=== PATIENT | female | born 1990 | race Caucasian/White ===

== ENCOUNTER 2017-01-17 07:20 | Inpatient (IN) | payer OTHER ==
[~2017-01-17] VITALS: Ht 162.6 cm; Wt 79.1 kg
[~2017-01-17 07:20] MED LIST: ALBUAER2 INH; PRENTAB69 PO
[2017-01-17] MEDS ORDERED: LACTATED RINGER'S 1000ML 1,000 ML IV PRN (09:01)
[2017-01-17 09:28] VITALS: Ht 162.6 cm; Wt 79.1 kg
[2017-01-17 09:43] LABS: HEMATOCRIT 34.9 % (37-47); MEAN CELL VOLUME 83.1 fL (80-100); MEAN CORPUSCULAR HEMOGLOBIN 27.1 pg (25-34); MEAN CORPUSCULAR HGB CONC 32.7 g/dl (32-36); MEAN PLATELET VOLUME 9.7 fL (7.4-10.4); PLATELET COUNT 112 K/uL (130-400); WHITE BLOOD COUNT 11.06 K/uL (4.8-10.8)
--- NOTE | 2017-01-17 09:58 | Progress Note ---
Progress Note Date of Service Jan 17, 2017. Progress Note Admit Note 26 F P1001 at 40.6 weeks admitted for induction of labor for post-dates. GBS positive. FHT Cat 1. Cervix fingertip/50/-3/vertex/posterior/soft. EFW 9#. Will place Cervidil for ripening.
[2017-01-17] MEDS ORDERED: CLINDAMYCIN IV 900 MG in DEXTROSE 5% 100ML 100 ML IV SCH (10:00)
[2017-01-17] MEDS ORDERED: DINOPROSTONE 10 MG INSERT PV ONE (10:00)
[2017-01-17] MEDS ORDERED: DINOPROSTONE 10 MG INSERT PV STA (21:13)
[2017-01-17] MEDS ORDERED: CEFAZOLIN IV 2,000 MG in DEXTROSE 5% 50ML 50 ML IV ONE (21:15)
[2017-01-17] MEDS ORDERED: CEFAZOLIN IV 1,000 MG in DEXTROSE 5% 50ML 50 ML IV PRN (21:15)
[2017-01-18] MEDS ORDERED: NURSING VERBAL MED ORDER ONE (03:15)
[2017-01-18] MEDS ORDERED: ACETAMINOPHEN 325 MG TAB PO PRN (03:30)
[2017-01-18] MEDS ORDERED: LACTATED RINGER'S 1000ML 500 ML IV PRN (08:05)
[2017-01-18] MEDS ORDERED: LACTATED RINGER'S 1000ML 1,000 ML IV SCH (08:05)
[2017-01-18] MEDS ORDERED: VANCOMYCIN INJ 1,000 MG in SODIUM CHLORIDE 0.9% 250ML 250 ML IV PRN (08:15)
[2017-01-18] MEDS ORDERED: OXYTOCIN 30 UNITS/500ML NSS IV PRN ×2 (08:15→19:15)
[2017-01-18] MEDS: LACTATED RINGER'S 1000ML 1,000 ML IV SCH ×2 (08:21→16:06)
[2017-01-18 08:23] LABS: BASO % 0.3 %; BASO ABS # 0.03 K/uL (0-0.2); COMPLETE YES; EOS % 5.1 %; HEMATOCRIT 34.9 % (37-47); IG% 2.2 %; LYMPH ABS # 1.78 K/uL (1.2-3.4); MEAN CELL VOLUME 82.9 fL (80-100); MEAN CORPUSCULAR HEMOGLOBIN 27.8 pg (25-34); MEAN CORPUSCULAR HGB CONC 33.5 g/dl (32-36); MEAN PLATELET VOLUME 9.7 fL (7.4-10.4); MONO % 9.8 %; NEUT % 66.6 %; PLATELET COUNT 106 K/uL (130-400); RED BLOOD COUNT 4.21 M/uL (4.2-5.4); WHITE BLOOD COUNT 11.15 K/uL (4.8-10.8)
[2017-01-18] MEDS ORDERED: VANCOMYCIN INJ 1,000 MG in SODIUM CHLORIDE 0.9% 250ML 250 ML IV ONE (08:30)
[2017-01-18 08:49] LABS: ALT/SGPT 14 U/L (12-78); AST/SGOT 15 U/L (15-37); BLOOD UREA NITROGEN 6 mg/dl (7-18); BUN/CREATININE RATIO 11.9 (10-20); CALCIUM 8.9 mg/dl (8.5-10.1); CARBON DIOXIDE 22 mmol/L (21-32); CHLORIDE 109 mmol/L (98-107); CREATININE 0.53 mg/dl (0.60-1.20); GLUCOSE 82 mg/dl (70-99); POTASSIUM 3.9 mmol/L (3.5-5.1); SODIUM 140 mmol/L (136-145)
[2017-01-18 08:51] LABS: ALB/GLOB RATIO 0.7 (0.9-2); ALKALINE PHOSPHATASE 176 U/L (45-117)
[2017-01-18] MEDS ORDERED: FENTANYL CITRATE INJ 50 MCG/1 ML 2 ML VIAL ONE (09:43)
[2017-01-18] MEDS ORDERED: EpHEDrine SULFATE INJ 50 MG/ML AMP ONE (09:43)
[2017-01-18] MEDS ORDERED: BUPIVACAINE 0.25% 30 ML VIAL ONE (09:43)
[2017-01-18] MEDS ORDERED: FENTANYL 2MCG/ML ROPIV 1.25MG/ML 100ML BAG EPI ONE (09:43)
[2017-01-18] MEDS ORDERED: ALBUTEROL HFA 8 GM INHALER INH PRN (16:00)
[2017-01-18] MEDS ORDERED: DIPHTHERIA/TETANUS/PERTUSSIS 0.5 ML SYR/VIAL IM. ONE (19:15)
[2017-01-18] MEDS ORDERED: SUPERCREAM 0.870 % 15GM JAR EXT PRN (19:15)
[2017-01-18] MEDS ORDERED: BENZOCAINE 20% AER SPR 82.5 GM CAN EXT PRN (19:15)
[2017-01-18] MEDS ORDERED: HYDROCORTISONE ACETATE 25 MG SUPP PR PRN (19:15)
[2017-01-18] MEDS ORDERED: LANOLIN OINT EXT PRN ×2 (19:15)
[2017-01-18] MEDS ORDERED: MEASLES, MUMPS & RUBELLA VIRUS VIAL SQ. ONE (19:15)
--- NOTE | 2017-01-18 20:25 | Anesthesia Procedure Note ---
Anesthesia Epidural Removal Nt Date & Time Jan 18, 2017 at 20:25 Vital Signs Pain Intensity: 0.0 Notes Mental Status: alert / awake / arousable, participated in evaluation Nausea / Vomiting: adequately controlled Pain: adequately controlled Airway Patency, RR, SpO2: stable & adequate BP & HR: stable & adequate Hydration State: stable & adequate Neuraxial Anesthesia: was administered Anesthetic Complications: no major complications apparent, pt satisfied with anesthetic care Epidural: removed without complications, with tip intact
[2017-01-18] MEDS: IBUPROFEN 600 MG TAB PO PRN (21:25)
[2017-01-18 21:30] VITALS: BP 121/81; PULSE 81; TEMP 37; O2SAT 98
[2017-01-18] MEDS: DOCUSATE SODIUM 100 MG CAP PO SCH (21:30)
[2017-01-18] MEDS: ACETAMINOPHEN 325 MG TAB PO PRN (23:29)
[2017-01-18 23:40] VITALS: BP 125/78; PULSE 85; TEMP 36.7; O2SAT 98
--- NOTE | 2017-01-18 23:47 | DELIVERY SUMMARY ---
DATE OF OPERATION: 01/18/2017 TIME: 1846 p.m. TIME OF DELIVERY OF PLACENTA: 1855 p.m. DETAILS OF DELIVERY: Patient was found to be fully dilated and desired to push. She pushed through only three contractions and delivered the head without difficulty. There was a nuchal cord around the neck x1, which was reduced while delivering the shoulders. Shoulders were delivered with minimal traction and then there was a body cord around the lower abdomen, which was also reduced and baby was taken off to the mother, where mouth and nose were suctioned. Cord was clamped x2 and cut at 1 minute. It was a 3-vessel cord. Cord blood was obtained. The perineum and vagina were checked for lacerations. There was a small first- degree labial laceration on the right labium. The vagina and perineum were intact. This was repaired with 3-0 Vicryl in a running fashion. Excellent hemostasis was achieved. The placenta was found to be in the vagina and delivered spontaneously. It was intact and complete. The uterus was explored and found to be empty. Fundus was firm. The lower segment was cleared of all clots and debris. EBL was 100. Mother and baby tolerated the procedure well. Sponge, lap, needle and instrument counts were correct x2. Baby was a viable male infant, Apgars 8/9. Weight was 3653 gr. No complications happened and I was present during the whole procedure. I attest to the content of the Intraoperative Record and any orders documented therein. Any exceptions are noted below. MTDD
[2017-01-19] MEDS: IBUPROFEN 600 MG TAB PO PRN ×5 (01:57→22:37)
[2017-01-19 04:25] VITALS: BP 103/67; PULSE 86; TEMP 36.5; O2SAT 98
[2017-01-19 06:21] LABS: HEMATOCRIT 35.3 % (37-47)
[2017-01-19 07:40] VITALS: BP 101/62; PULSE 78; TEMP 37; O2SAT 98
--- NOTE | 2017-01-19 08:11 | OB/GYN Progress Note ---
[facility] [employer] Progress Note Date of Service Jan 19, 2017. Subjective conversation w/ patient, physical exam Ambulation: ambulating normally Voiding: no voiding problems Passing Gas: Yes Diet Tolerance: Regular Diet Lochia: Small Feeding Type: Breast Feeding Objective Vital Signs Date Time Temp Pulse Resp B/P (MAP) Pulse Ox O2 Delivery O2 Flow Rate FiO2 01/19/17 04:25 36.5 86 20 103/67 (79) 98 Room Air 01/18/17 23:40 36.7 85 20 125/78 (94) 98 Room Air 01/18/17 23:40 Room Air 01/18/17 23:40 36.7 85 20 125/78 01/18/17 21:30 Room Air 01/18/17 21:30 37.0 81 16 121/81 (94) 98 Room Air Physical Exam General Appearance: WELL-APPEARING, NO APPARENT DISTRESS Abdomen: non tender, soft Fundus: Firm Extremities: normal range of motion, non-tender, normal inspection, no pedal edema, no calf tenderness Laboratory Results Last 24 Hours Test 01/19/17 06:03 Hemoglobin 11.5 g/dL Hematocrit 35.3 % Assessment and Plan Post- Day Number: 1 Continue Routine Care: tent d/c in AM
[2017-01-19] MEDS: DOCUSATE SODIUM 100 MG CAP PO SCH ×2 (08:16→20:01)
[2017-01-19] MEDS: PRENATAL VITAMIN TAB PO SCH (08:16)
[2017-01-19] MEDS: FERROUS SULFATE 325 MG TAB PO SCH (08:16)
[2017-01-19] MEDS: ACETAMINOPHEN 325 MG TAB PO PRN ×3 (09:44→20:01)
[2017-01-19 12:00] VITALS: BP 114/73; PULSE 88; TEMP 36.7
[2017-01-19 15:30] VITALS: BP 108/65; PULSE 79; TEMP 36.4
[2017-01-19] MEDS ORDERED: BISACODYL 5 MG TABEC PO SCH (20:00)
[2017-01-20 00:05] VITALS: BP 114/67; PULSE 75; TEMP 36.7
[2017-01-20] MEDS: IBUPROFEN 600 MG TAB PO PRN ×3 (04:47→18:18)
[2017-01-20 06:39] LABS: HEMATOCRIT 33.6 % (37-47); MEAN CELL VOLUME 82.8 fL (80-100); MEAN CORPUSCULAR HEMOGLOBIN 27.3 pg (25-34); RED BLOOD COUNT 4.06 M/uL (4.2-5.4); WHITE BLOOD COUNT 9.99 K/uL (4.8-10.8)
[2017-01-20] MEDS ORDERED: BISACODYL 10 MG SUPP PR PRN (07:00)
[2017-01-20 07:02] LABS: MEAN PLATELET VOLUME 9.5 fL (7.4-10.4); PLATELET COUNT 97 K/uL (130-400); PLT ESTIMATE DECREASED
[2017-01-20 07:41] VITALS: BP 120/77; PULSE 76; TEMP 36.6; O2SAT 98
[2017-01-20] MEDS: FERROUS SULFATE 325 MG TAB PO SCH (08:35)
[2017-01-20] MEDS: PRENATAL VITAMIN TAB PO SCH (08:35)
[2017-01-20] MEDS: DOCUSATE SODIUM 100 MG CAP PO SCH (08:35)
[2017-01-20] MEDS: ACETAMINOPHEN 325 MG TAB PO PRN ×2 (08:38→15:32)
[2017-01-20] MEDS ORDERED: MTR600X PO (10:09)
--- NOTE | 2017-01-20 10:10 | Discharge Instructions ---
Discharge Instructions Date of Service Jan 20, 2017. Admission Reason for Admission: Induction Discharge Discharge Diagnosis / Problem: term delivered Discharge Goals Goal(s): Routine recovery after delivery Activity Recommendations Activity Limitations: as noted below Lifting Limitations: no more than 10 pounds Exercise/Sports Limitations: gradually increase as tolerated May Resume Sexual Activity: after follow-up appointment Shower/Bathe: no limitations Driving or Machine Use: resume 3 days after discharge . Instructions / Follow-Up Instructions / Follow-Up ACTIVITY RECOMMENDATIONS: * Gradual return to full activity over the next 2-3 weeks. * No lifting - nothing heavier than baby over the next 2-3 weeks. * Do not engage in vigorous exercise, sexual activity or sports until cleared by your physician. * Do not drive or operate any motorized equipment until cleared by your physician. * You may shower/bathe daily. BREAST CARE: If you are not breast feeding: * Wear a supportive bra 24 hours a day for one to two weeks. * Avoid stimulating your breasts and nipples as much as possible during the first few weeks after delivery. * When taking a shower, have the warm water hit your back, not breasts. * When your breasts feel full, apply ice packs. Usually three to four times a day helps ease the discomfort. * Take a mild pain medication (Tylenol/Motrin) when you are uncomfortable. If breast feeding: * Use breast milk to lubricate nipples. Lansinoh cream may be used for sore nipples. You do not need to remove cream prior to breast feeding. If using a different brand of cream, check the label for directions regarding removal of cream prior to nursing. * Wear a supportive bra. * If having problems with breasts or breast feeding, call a marketing sales consultant or your health care provider. EPISIOTOMY CARE: After delivery, if you have an episiotomy (stitches), the following steps will ease discomfort and aid healing. * For the first 24 hours after delivery, place ice packs next to your episiotomy to help reduce swelling. * After the first 24 hour-period, sitz baths, either portable or in the tub, are suggested. A shower with a shower arm sprayed over the episiotomy may be comforting. * Laurita care should be done after each voiding and bowel movement. Squirt warm water from a plastic bottle over the perineum (region of the body between the anus and urinary opening) and pat dry. * Use Dermoplast to ease discomfort. Shake container. [place] directly over the episiotomy. * Place a Tucks on a clean sanitary pad next to your episiotomy. OVER THE COUNTER MEDICATION: * For discomfort or pain, you may use Acetaminophen (Tylenol), Ibuprofen (Advil ), or Naproxen (Aleve) following the package directions. * For constipation you may use Colace following the package directions. SPECIAL CARE INSTRUCTIONS: When you are discharged from the hospital, it is important for you to follow the instructions listed below: * During the first week at home, you should be able to care for yourself and your baby. In addition, the usual light household activities are encouraged. * Limit your activities to the way you feel. Do not try to clean the house or move furniture. Be sensible. * If you actively engage in sports and have done so up until the time of your delivery, you may resume these activities as soon as you feel able. This may take up to one month or even longer. Use good judgment. * Continue to take your vitamins for at least six weeks after the of your baby. * Your diet need not be limited unless you were on a special diet before your delivery. Breast-feeding mothers need around 2500 calories per day and at least 64-80 ounces of fluid per day (8 to 10 glasses). * You should eat foods from the four major food groups. Crash diets or fad diets are to be avoided. Eating lean meats, fresh fruits and vegetables, low-fat dairy products, high fiber foods and a regular exercise program, will help you get back to your pre- weight without putting your health at risk. * Constipation is sometimes a problem after delivery. Take a mild laxative as needed. If breast feeding, Milk of Magnesia is acceptable to use. You may use a suppository or Fleets enema if no episiotomy. * A daily shower or tub bath is suggested. Be sure to thoroughly and gently dry the perineum. * A bloody vaginal discharge will usually continue until around four weeks post . A small amount of bleeding may continue for as long as six weeks. Vaginal discharge changes from the bright red bleeding after delivery to pink then brownish and finally yellowish-pink before becoming white and disappearing. * Bleeding may increase with activity. Your first period may come in 4-8 weeks. If you are breast feeding, your period may be delayed even longer. * [place] (sex) can begin whenever both you and your partner feel comfortable and do not have any form of genital infection. It is recommended that you wait until after your return appointment and discuss with your physician. If you have questions, please talk to your health care practitioner. A condom should be used to prevent infection and . * Foreplay, gentle intercourse and lubrication is very important the first several times to prevent pain. A water-based lubricant such as K-Y jelly or Astroglide may be used. * Tampons may be used six weeks after delivery. * Douching should be avoided for 6 weeks after delivery. * If you have RH negative blood and your baby is RH positive, you will receive RHOGAM by injection prior to discharge. The nurse will give you a card to keep with you that has the date and place that you received RHOGAM after delivery. * During your care, you had a Rubella screen done to check for the presence of rubella antibodies in your blood. If your test was negative, you will receive a Rubella vaccine prior to discharge. This vaccine may cause a fever, soreness at the injection site and flu-like symptoms. If these symptoms persist, notify your health care practitioner. is not advised for three months after a Rubella vaccine. There is a higher chance of having a baby with defects if conceived within three months of getting the vaccine. * If you were discharged 24 hours from delivery or before 48 hours: Visiting nurses will come to your home 48 hours after discharge to assess you and your baby. The visiting nurse will meet with you while you are in the hospital to arrange a time and get directions to your home. * Verbalizes understanding of car seat law as reviewed with patient nursing. * Car Seat hand-out given and reviewed with patient by nursing. * Shaken baby information reviewed with patient by nursing. Call you doctor if: * Heavy bleeding (saturating several pads an hour) or passing clots the size of your fist. * A fever >101 degrees F (38.3 degrees C) on two occasions four hours apart and/or chills. * Unusual pain in the pelvic or vaginal areas. * "Baby Blues" lasting longer than two weeks. If you have any questions or concerns, call your health care practitioner at . FOLLOW-UP VISIT: * Please call the office at to schedule a 6 week examination. It is important you keep this appointment. * It is important for you to make arrangements for either yearly or twice yearly check-ups thereafter. Current Hospital Diet Patient's current hospital diet: Regular OB Diet Discharge Diet Recommended Diet: Regular OB Diet Fluid Restriction: None Pending Studies Studies pending at discharge: no Medical Emergencies . Who to Call and When: Medical Emergencies: If at any time you feel your situation is an emergency, please call 911 immediately. . Non-Emergent Contact Non-Emergency issues call your: Primary Care Provider . . "Provider Documentation" section prepared by Damian Flores. . VTE Core Measure Inpt VTE Proph given/why not?: Treatment not indicated
--- NOTE | 2017-01-20 10:12 | OB/GYN Progress Note ---
[employer] Progress Note Date of Service Jan 20, 2017. Subjective conversation w/ patient, conversation w/ family, physical exam Ambulation: ambulating normally Voiding: no voiding problems Passing Gas: Yes Diet Tolerance: Clear Liquids, Regular Diet Lochia: Small Feeding Type: Breast Feeding Objective Vital Signs Date Time Temp Pulse Resp B/P (MAP) Pulse Ox O2 Delivery O2 Flow Rate FiO2 01/20/17 07:41 36.6 76 24 120/77 (91) 98 Room Air 01/20/17 00:05 36.7 75 18 114/67 (83) Room Air 01/20/17 00:05 Room Air 01/19/17 15:30 36.4 79 16 108/65 (79) Room Air 01/19/17 15:30 Room Air 01/19/17 12:00 36.7 88 18 114/73 (87) Room Air Physical Exam General Appearance: NO APPARENT DISTRESS Abdomen: non tender, soft Fundus: Firm Extremities: non-tender, normal inspection, no pedal edema, no calf tenderness Laboratory Results Last 24 Hours Test 01/20/17 06:20 White Blood Count 9.99 K/uL Red Blood Count 4.06 M/uL Hemoglobin 11.1 g/dL Hematocrit 33.6 % Mean Corpuscular Volume 82.8 fL Mean Corpuscular Hemoglobin 27.3 pg Mean Corpuscular Hemoglobin Concent 33.0 g/dl RDW Standard Deviation 45.4 fL RDW Coefficient of Variation 15.0 % Platelet Count 97 K/uL Mean Platelet Volume 9.5 fL Platelet Estimate DECREASED Assessment and Plan Post- Day Number: 2 Continue Routine Care: discharged
[2017-01-20 11:15] VITALS: BP 119/81; PULSE 80; TEMP 36.3; O2SAT 98
[2017-01-20 15:40] VITALS: BP 133/77; PULSE 80; TEMP 36.7; O2SAT 98
[2017-01-20 18:50] VITALS: BP_DIAS 77; PULSE 80; TEMP 36.7
== END 2017-01-20 19:05 | disposition home or self-care (01) | DRG 775 ==
LOC: C.LD 07:20 → C.OBG 01-18 22:12
PROVIDERS: ADMIT Obstetrics & Gynecology; ATTEND Obstetrics & Gynecology
PROC: 3E0P7GC Introduction of Other Therapeutic Substance into Female Reproductive, Via Natural or Artificial Opening (ICD-10-PCS; 2017-01-17)
PROC: 0HQ9XZZ Repair Perineum Skin, External Approach (ICD-10-PCS; principal; 2017-01-18)
PROC: 10E0XZZ Delivery of Products of Conception, External Approach (ICD-10-PCS; principal; 2017-01-18)
DX: O48.0 Post-term pregnancy (principal); O70.0 First degree perineal laceration during delivery; O69.81X0 Labor and delivery complicated by cord around neck, without compression, not applicable or unspecified; Z3A.41 41 weeks gestation of pregnancy; O99.824 Streptococcus B carrier state complicating childbirth; Z37.0 Single live birth